=== PATIENT | male | born 1945 | race Caucasian/White ===

== ENCOUNTER 2017-05-30 10:27 | Inpatient (IN) ==
[2017-05-30] MEDS ORDERED: ZALEPLON 5 MG CAPSULE PO PRN (10:29)
[2017-05-30] MEDS ORDERED: DOCUSATE SODIUM 100 MG CAPSULE PO PRN (10:29)
[2017-05-30] MEDS ORDERED: ACETAMINOPHEN 325 MG TABLET PO PRN (10:29)
[2017-05-30] MEDS ORDERED: LACTULOSE 20 GM/30 ML UDCUP PO PRN (10:29)
[2017-05-30] MEDS ORDERED: ALBUTEROL/IPRATROPIUM 3 ML NEB RESP TX PRN (10:34)
--- NOTE | 2017-05-30 10:44 | Pulmonology History & Physical ---
History of Present Illness Chief complaint: bilateral LE lymphangitis and cellulitis, shortness of breath History of present illness: LOUIS Bonilla acting as scribe for Dr. Rome Zhang. Mr. Roca is a 71 year old /White male from [place], [place]. He was seen today in the clinic along with his for complaints of worsening lower extremity edema, erythema, and pain that is unresolved with multiple treatments , several partially healed wounds on both lower extremities, severe hand and lower extremity cramping, increased shortness of breath and wheezing. He has been treated on an outpatient basis with diuresis, antibiotics including Levaquin, PenVK, and Bactrim DS, PO magnesium and potassium, along with other medicines as listed. This has been ongoing per his and his 's report for about 1 month despite treatment and continues to get progressively worse. Due to the severity and length of his symptoms along with failure of multiple outpatient treatments decision was made to admit to inpatient for further evaluation and treatment. He denies palpitations, cardiac angina, syncope or near syncope, and evidence of TIAs. The remainder of the review of systems is negative. ALLERGIES: MORPHINE, HISTORY OF HAY FEVER Home Medicines: Albuterol Sulfate liquid 2mg PO TID, Anoro Ellipta 1 puff daily , ASA EC 81mg daily, Vitamin B3 1000 units daily, Combivent Respimat 1 puff QID PRN, CoQ-10 100mg capsule daily, Flonase nasal spray 1 spray to each nare daily , HCTz 25mg daily, Duoneb Inhalation treatments QID and PRN, Lipitor 40mg qHS, Mag 64 2 tablets daily, Metoprolol tartrate 12.5mg BID, Nexium 40mg BID, Nitrostat SL 0.4mg as directed PRN, Norvasc 5mg daily, Osteo Bi-Flex 250-500mg daily, Plavix 75mg daily, Potassium 99mg OTC tablet BID, Prednisone 10mg BID, Vitamin B6 100mg daily, Reglan 10mg QID, Singulair 10mg daily, Self prescribed Turmeric daily, Tylenol 650mg PRN, Vitamin b12 1000mcg by mouth daily, Vitamin D3 2,000 units daily. Past Medical History: COPD. Bronchospastic airway disease. Hypertension. Hyperlipidemia. Left carotid endarterectomy in 2001. Right carotid endarterectomy 2004. Previous knee surgery. Stent to the proximal and mid right coronary arteries 06/11/2014. Coronary artery disease followed by Dr. Isaac. GERD with history of Degroot's esophagitis. Most recent EGD done 04/29/[address] Ward which showed severe erosive esophagitis with biopsy positive for Degroot' s esophagitis. Dr. Ward recommended repeat EGD in 2 months. 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 Social History: Smoked from age 15 until age 46. He smoked approximately 2 packs per day and quit in 1991. He is to his Herlinda with two grown children. His daughter Alison is a nurse practitioner at the [employer]. He worked for [employer], mostly office work. Family History: Noncontributory. CXR is pending. Labs done at [facility] have been reviewed: WBC 13,600 with 79.2% segs. H&H 14.5/44 with normal indices and a normal RDW. Platelets 200,000. Glucose 108. BUN/ Creatinine 21/1.36. Calcium 9.1. Sodium 141. Potassium 4.4. Magnesium 1.7. EKG is pending. Home Medications Medication Instructions Recorded Confirmed Type Aspirin [Aspirin EC] 81 mg PO DAILY 02/10/17 04/28/17 History Atorvastatin [Lipitor] 40 mg PO BEDTIME 02/10/17 04/28/17 History Clopidogrel [Plavix] 75 mg PO DAILY 02/10/17 04/28/17 History Fluticasone 50 Mcg Nasal Chappell 2 spray BOTH NARES BID PRN 02/10/17 04/28/17 History [Flonase Nasal Chappell] Metoprolol Succinate 0.5 tablet PO BID 02/10/17 04/28/17 History Montelukast Tab [Singulair Tab] 10 mg PO BID 02/10/17 04/29/17 History Nitroglycerin Sl Tab [Nitrostat] 0.4 mg SL Q5M PRN 02/10/17 04/28/17 History amLODIPine [Norvasc] 5 mg PO DAILY 02/10/17 04/28/17 History hydroCHLOROthiazide 25 mg PO DAILY 02/10/17 04/28/17 History [Hydrochlorothiazide] predniSONE [Prednisone] 10 mg PO BID 02/10/17 04/28/17 History Albuterol Liquid [Proventil Liquid] 2 mg PO TID 04/28/17 04/28/17 History Albuterol/Ipratropium Neb [Duoneb] 3 ml RESP TX RT Q6H 04/28/17 04/28/17 History Cholecalciferol (Vitamin D3) 2,000 unit PO DAILY 04/28/17 04/28/17 History [Vitamin D3] Cyanocobalamin Tab [Vitamin B12 500 mcg PO DAILY 04/28/17 04/28/17 History Tab] Ipratropium/Albuterol Inhaler 1 puff INH QID PRN 04/28/17 04/28/17 History [Combivent Respimat Inhaler] Niacin [Vitamin B3] 1,000 mg PO DAILY 04/28/17 04/28/17 History Potassium 99 mg PO DAILY 04/28/17 04/28/17 History Pyridoxine HCl (Vitamin B6) 100 mg PO DAILY 04/28/17 04/28/17 History [Pyridoxine HCl] Turmeric/Turmeric Ext/Pepr Ext 1 each PO DAILY 04/28/17 04/28/17 History [Turmeric Complex 500 mg Cap] Umeclidinium Brm/Vilanterol Tr 1 puff INH DAILY 04/28/17 04/28/17 History [Anoro Ellipta] Esomeprazole Magnesium [Nexium] 40 mg PO BID 04/29/17 04/29/17 History Metoclopramide Tab [Reglan Tab] 10 mg PO Q6H 04/29/17 04/29/17 History Allergies Allergy/AdvReac Type Severity Reaction Status Date / Time morphine Allergy Severe ITCHING Verified 02/12/17 07:16 Medical,Surgical,& Family Hx - Medical History Cardio: History of: Hypertension, Cardiovascular Problems (stent dr isaac) Neurology: No history of: Seizures HEENT: History of: Eye Problem (glasses cataracts), Dental Problems (dentures) Endocrine: History of: Dyslipidemia No history of: Adrenal Disease, Thyroid Disorder Respiratory: History of: Asthma, COPD, Obstructive Sleep Apnea (cpap), Respiratory Problems (productive cough with blood) Renal: No history of: Renal Problems Genitourinary: No history of: Bladder Problem, Kidney Stones Musculoskeletal: History of: Musculoskeletal Problems (oa) Other: No history of: Anesthesia Reactions, Cancer - Surgical History Cardiac Surgeries: Sugical HX of: Cardiac Catheterization, Carotid Endarterectomy (x2) Patient Denies: Cardiac Surgery HEENT Surgeries: Surgical HX of: Carotid Endarterectomy (x2), Eye Surgery ( BILATERAL CATARACT), Tonsilectomy & Adenoidectomy Abdominal Surgeries: Surgical HX of: Colonoscopy, EGD Patient denies: Appendectomy, Cholecystectomy, Hernia Repair Orthopedic Surgeries: Surgical HX of;: Orthopedic Surgery (2 knee), Total Knee Replacement (right) - Family History Family History: Reports;: Family Cancer (dad), Family Diabetes (mom), Family Hypertension (mom brother) - Social History Smoking Status: Former smoker Exam ([facility]) H&P - Constitutional Exam: Vital signs see below Psychiatric. Awake, alert, oriented x 3. Acutely ill appearing. Neruologic: Cranial nerves. Intact. long track motor functions intact. Sensory exam was not done. Gait was not tested. Face. Eyes are normal. Face is symmetrical. Salivary glands are normal. Nares lips and tongue are normal Neck. Symmetrical. No masses. No meningismus. Thyroid was not palpated. Lymphatics. No submandibular cervical supraclavicular or epitrochlear adenopathy Chest. Symmetrical. Mild/moderate large airway/tracheal wheeze on forced expiration. No peripheral wheezing. Chest is otherwise clear. Heart. Heart sounds are distant. No gallop Abdomen. Nontender. No organomegaly. Abdominal obesity is present. and rectal deferred Extremities. No clubbing. Bilateral lower extremity edema most prominent in the pedal area 2/4+ pitting edema. Mild erythma noted to the pedal and anterior mckenna area bilaterally. Musculoskeletal. Age-appropriate loss normal curvature cervical thoracic and lumbar spine. Skin: Face and hands show no cancerous infectious lesions. Scattered purpura noted on both upper extremities. 2 healing sores noted to the LLE and 2 possibly 3 to the RLE. No drainage noted to any of the sore areas. Erythema noted around with some tenderness of palpation. No other areas of skin were examined. Arterial. Carotids are decreased. Upper extremity pulses are palpable lower extremity pulses are nonpalpable. Venous exam of the neck upper extremities normal. Lower extremities noted with edema and erythema as above. The remainder the physical exam is negative. Impression: 1. Bilateral lower extremity lymphangitis and cellulitis refractory to outpatient treatment. 2. Hypomagnesemia. 3. Bilateral hand and left cramping, likely secondary to #2, but r/o other causes. 4. COPD with mild exacerbation based on increased shortness of breath and wheezing. 5. History of GERD with Degroot's Esophagitis. 6. Hypertension. 7. Hyperlipidemia. 8. See past history. Plan: 1. Admit to inpatient for further evaluation and treatment. 2. IV Merrem and Cleocin due to failure of outpatient abx. 3. Venous dopplers and arterial studies as ordered. 4. Labs as ordered, CXR, and EKG. 5. Lovenox 30mg subq daily. 6. See orders.
[2017-05-30] MEDS: ALBUTEROL/IPRATROPIUM 3 ML NEB RESP TX SCH ×3 (11:05→19:57)
[2017-05-30] MEDS ORDERED: NITROGLYCERIN SL 0.4 MG TABLET SL PRN (12:01)
[2017-05-30] MEDS ORDERED: FLUTICASONE 50 MCG NASAL SPRAY 16 GM BOTTLE BOTH NARES PRN (12:01)
--- NOTE | 2017-05-30 13:31 | Ultrasound Report ---
History: Bilateral lower extremity edema and erythema Date: 05/30/2017 Study: Bilateral lower extremity color-flow venous Doppler study Comparison exam: No previous Color Doppler, wave form analysis, and compression analysis of the deep veins of the right lower extremity from the common femoral vein level through the popliteal vein level shows that the veins are readily compressible. There is no abnormal intraluminal material to suggest thrombus. Waveform analysis is unremarkable. Ultrasound images were captured and archived Impression: Normal right lower extremity color flow venous Doppler study. No evidence of acute DVT PROCEDURE INTERPRETED AT [facility] DEPARTMENT OF RADIOLOGY Final Report Signed by: Dr. Yue Jain
--- NOTE | 2017-05-30 14:00 | EKG Report ---
Stationary ECG Study [facility] Test Date: 05/30/2017 2:01:10 PM Pat Name: MEET VOGEL Department: Room: 521 Gender: M Residential Solar Consultant: : 1945 Requested by: Samantha Marx Order Number: [id number] Reading MD: CHERRY PEREZ Intervals [place] Rate: 92 P: 70 DC: 154 QRS: 56 QRSD: 88 T: 66 QT: 340 QTc: 389 Interpretive Statements SINUS RHYTHM WITH FREQUENT VENTRICULAR PREMATURE COMPLEXES LOW QRS VOLTAGE IN PRECORDIAL LEADS MODERATE ST DEPRESSION Electronically Signed On 06-01-17 16:53:45 CDT by CHERRY PEREZ [email or web address]
[2017-05-30] MEDS: hydroCHLOROthiazide 25 MG TABLET PO SCH (14:46)
--- NOTE | 2017-05-30 14:46 | XRay Report ---
XR chest 2V Indication: Shortness of breath. Comparison: None. Technique: PA and lateral chest x-ray was performed. Findings: The heart size appears within normal limits. Pulmonary vasculature demonstrates no specific abnormality. Hilar structures demonstrate fairly symmetric appearance. The lungs appear clear. Mild hyperexpansion is noted on the lateral image. Bones and soft tissues demonstrate no evidence of acute pathology. Impression: 1. Emphysematous changes are suggested without evidence of superimposed acute pathology. 05/30/2017 2:42 PM PROCEDURE INTERPRETED AT [facility] DEPARTMENT OF RADIOLOGY Final Report Signed by: Dr. Kd Pina
[2017-05-30] MEDS: METOCLOPRAMIDE 10 MG TABLET PO SCH ×3 (14:47→23:48)
[2017-05-30] MEDS: methylPREDNISolone SOD SUC 40 MG/1 ML VIAL IV SCH ×2 (14:50→23:48)
[2017-05-30] MEDS: ENOXAPARIN 30 MG/0.3 ML SYRINGE SUBCUT SCH (14:51)
[2017-05-30] MEDS: MEROPENEM 500 MG in SODIUM CHLORIDE 0.9% 100 ML IV SCH ×2 (14:54→21:02)
[2017-05-30 14:55] LABS: Apearance,Urine CLEAR (Clear); Bilirubin,Urine Negative (Negative); Blood, Urine Negative (Negative); Glucose,Urine (UA) Negative (Negative); Ketones,Urine Negative (Negative); Nitrite,Urine Negative (Negative); Protein,Urine Negative; RBC,Urine <1 /HPF (0-4); Urine Color Yellow (Yellow); Urine Specific Gravity 1.013 (1.001-1.035); Urine Urobilinogen < 2.0 EU/DL (0.2-1.0); WBC,Urine <1 /HPF (0-6)
[2017-05-30] MEDS: CLINDAMYCIN INJ 300 MG in PREMIX 1 EACH IV SCH ×2 (15:59→22:11)
[2017-05-30] MEDS: ALBUTEROL 0.4 MG/ML 30 ML/BOTTLE PO SCH ×2 (16:21→21:05)
[2017-05-30] MEDS: PANTOPRAZOLE 40 MG TABLET PO SCH (21:01)
[2017-05-30] MEDS: ATORVASTATIN 40 MG TABLET PO SCH (21:01)
[2017-05-30] MEDS: METOPROLOL TARTRATE 25 MG TABLET PO SCH (21:01)
[2017-05-30] MEDS: MONTELUKAST 10 MG TABLET PO SCH (21:01)
[2017-05-30] MEDS: POTASSIUM CHLORIDE 10 MEQ TABLET PO SCH (21:02)
[2017-05-30] MEDS: MAGNESIUM CHLORIDE 64 MG TABLET PO SCH (21:02)
[2017-05-31 06:26] LABS: Basophils % 0.2 % (0.0-0.8); Hematocrit 43.8 VOL% (42.0-52.0); Hemoglobin 14.8 GM/DL (14.0-18.0); Immature Granulocytes % 1.8 %; Immature Granulocytes Absolute 0.23 #; Lymphocytes # 1.1 10*3/uL (1.4-4.0); Lymphocytes % 8.1 % (21.2-54.2); Mean Corpuscular HGB Conc 33.8 GM/DL (32-36); Mean Corpuscular Hemoglobin 31 PG (27-34); Mean Corpuscular Volume 92.2 FL (87-102); Mean Platelet Volume 10.4 FL (9.6-12.0); Monocytes # 0.3 10*3/uL (0.11-0.8); Monocytes % 2.5 % (1.7-12.7); Neutrophils # 11.3 10*3/uL (1.4-7.4); Neutrophils % 87.4 % (38.7-73.9); Platelet Count 190 T/CUMM (130-400); Red Blood Count 4.75 MC/CUMM (3.8-5.5); Red Cell Distribution Width 13.9 % (9.3-17.3); White Blood Count 12.9 T/CUMM (4-12)
[2017-05-31] MEDS: MEROPENEM 500 MG in SODIUM CHLORIDE 0.9% 100 ML IV SCH ×3 (06:40→20:38)
[2017-05-31] MEDS: METOCLOPRAMIDE 10 MG TABLET PO SCH ×3 (06:40→17:53)
[2017-05-31 07:05] LABS: Albumin 3.7 G/DL (3.4-5.0); Bilirubin,Total 1.1 MG/DL (0.2-1.0); Calcium 9.4 MG/DL (8.5-10.1); Magnesium 2.3 MG/DL (1.8-2.4); Osmolality,Calculated 279.7 MOS/KG (273-304); Potassium 4.6 MMOL/L (3.5-5.1); Total Protein 6.8 G/DL (6.4-8.3)
[2017-05-31] MEDS: CLINDAMYCIN INJ 300 MG in PREMIX 1 EACH IV SCH ×3 (07:11→21:17)
[2017-05-31] MEDS: ALBUTEROL/IPRATROPIUM 3 ML NEB RESP TX SCH ×4 (08:03→20:15)
[2017-05-31] MEDS: PYRIDOXINE 100 MG TABLET PO SCH (08:27)
[2017-05-31] MEDS: NIACIN 500 MG TABLET PO SCH (08:27)
[2017-05-31] MEDS: MAGNESIUM CHLORIDE 64 MG TABLET PO SCH ×2 (08:27→20:37)
[2017-05-31] MEDS: hydroCHLOROthiazide 25 MG TABLET PO SCH (08:27)
[2017-05-31] MEDS: CHOLECALCIFEROL 1,000 UNIT TABLET PO SCH (08:27)
[2017-05-31] MEDS: PANTOPRAZOLE 40 MG TABLET PO SCH ×2 (08:28→20:38)
[2017-05-31] MEDS: POTASSIUM CHLORIDE 10 MEQ TABLET PO SCH ×2 (08:28→20:38)
[2017-05-31] MEDS: MONTELUKAST 10 MG TABLET PO SCH ×2 (08:28→20:37)
[2017-05-31] MEDS: ASPIRIN EC 81 MG TABLET PO SCH (08:28)
[2017-05-31] MEDS: CLOPIDOGREL 75 MG TABLET PO SCH (08:28)
[2017-05-31] MEDS: METOPROLOL TARTRATE 25 MG TABLET PO SCH ×2 (08:28→20:37)
[2017-05-31] MEDS: amLODIPine 5 MG TABLET PO SCH (08:28)
[2017-05-31] MEDS: ENOXAPARIN 30 MG/0.3 ML SYRINGE SUBCUT SCH (08:29)
[2017-05-31] MEDS: ALBUTEROL 0.4 MG/ML 30 ML/BOTTLE PO SCH ×4 (08:30→20:38)
[2017-05-31] MEDS ORDERED: NON-FORMULARY MEDICATION (Umeclidinium Brm/Vilanterol Tr [Anoro Ellipta] 1 PUFF) INH SCH (09:00)
--- NOTE | 2017-05-31 10:29 | Event Note ---
I saw the patient's in the hospital and she stopped me pulled me into the room. She wanted to discuss cessation of clopidogrel. Mr. Roca is now several years status post PCI of the RCA has advanced COPD and some right heart failure with last echo his EF was preserved. He recently had a stress test within the last year at the office. It will be fine from a cardiac standpoint for the patient to discontinue clopidogrel he continues to have significant amount of bleeding with minimal minimal trauma she showed me pictures of his legs and arms after he got in some briars while mowing the grass at home a week or so ago. It certainly will be fine with me for him to have his clopidogrel discontinued. He has carotid vascular disease but I do not think there is an indication from that standpoint to continue that at this time. Please discontinue clopidogrel unless there are indications that I am unaware of as a reason to continue this.
--- NOTE | 2017-05-31 11:05 | Pulmonology Progress Note ---
Pulmonary - PN: Subj Interval history: This is a 71-year-old white male whom I admitted from my office on 05/30/2017. My impressions were. 1. Bilateral lower extremity lymphangitis and cellulitis refractory to outpatient treatment. 2. Hypomagnesemia. 3. Bilateral hand and left cramping, likely secondary to #2, but r/o other causes. 4. COPD with mild exacerbation based on increased shortness of breath and wheezing. 5. History of GERD with Degroot's Esophagitis. 6. Hypertension. 7. Hyperlipidemia. 8. See past history. 05/31/2017. Patient was seen along with his . He has bilateral lower extremity lymphangitis and cellulitis. This is better and he has less edema but he sitting up in a chair with his feet down and I have repeatedly told him not to do this. I reinforced that today. I suspect he is just as compliant when he is at home. Doppler venogram showed no evidence of deep venous thrombophlebitis. I did not see a definite infiltrate on his chest x-ray. He was admitted with an acute exacerbation of COPD. I was suspicious that he might have pneumonia. White blood cell count was 12,900 with 87.4 segs. H&H was 14.8/43.8 with normal indices and platelets 490,000. Electrolytes are normal. Creatinine was 1.1 with a BUN of 19. Urine showed no evidence of infection. Natruretic peptide was 46. Protein albumin and globulin are normal thyroid function tests were normal liver was normal and glucose is under good control Physical exam. Vital signs. See below. Psychiatric. Oriented 3 General. No distress Face. Symmetrical. No edema of the lips or tongue Neck. Symmetrical no meningismus Lymphatics. No submandibular cervical supraclavicular or epitrochlear adenopathy Chest tracheal and laryngeal wheeze with prolonged incomplete expiration Heart. No gallop Abdomen. Nontender. Positive bowel sounds Lower extremities +1-1/2 over 4 pedal and pretibial edema that extends 60% of the distance to the tibial plateaus bilaterally. There is overlying erythema which tends to be anterior and there is several areas of super imposed bacterial infection with weeping. Neurologic. Cranial nerves are intact with some decreased hearing acuity. Long track motor functions intact The remainder the physical exam is negative. Plan. 1. Continue present regimen 2. Elevate feet as much as humanly possible Plan: 1. Admit to inpatient for further evaluation and treatment. 2. IV Merrem and Cleocin due to failure of outpatient abx. 3. Venous dopplers and arterial studies as ordered. 4. Labs as ordered, CXR, and EKG. 5. Lovenox 30mg subq daily. 6. See orders. Exam (Progress Note) - Constitutional Vitals: Period Temp Pulse Resp BP Sys/Granados Pulse Ox Last 24 Hr 97.1 F-99.7 F 70-94 17-22 128-155/71-98 90-98 Results - Labs CBC & BMP: 05/31/17 04:27 05/31/17 04:27
[2017-05-31] MEDS: methylPREDNISolone SOD SUC 40 MG/1 ML VIAL IV SCH (11:30)
[2017-05-31] MEDS: ATORVASTATIN 40 MG TABLET PO SCH (20:37)
[2017-06-01] MEDS: methylPREDNISolone SOD SUC 40 MG/1 ML VIAL IV SCH ×2 (00:21→11:31)
[2017-06-01] MEDS: METOCLOPRAMIDE 10 MG TABLET PO SCH ×4 (00:21→17:44)
[2017-06-01 05:49] LABS: Basophils % 0.2 % (0.0-0.8); Hematocrit 42.4 VOL% (42.0-52.0); Hemoglobin 14.3 GM/DL (14.0-18.0); Immature Granulocytes % 2.5 %; Immature Granulocytes Absolute 0.36 #; Mean Corpuscular HGB Conc 33.7 GM/DL (32-36); Mean Corpuscular Hemoglobin 31 PG (27-34); Mean Corpuscular Volume 93.2 FL (87-102); Mean Platelet Volume 10.5 FL (9.6-12.0); Monocytes # 0.6 10*3/uL (0.11-0.8); Monocytes % 3.9 % (1.7-12.7); Neutrophils # 12.5 10*3/uL (1.4-7.4); Neutrophils % 86.4 % (38.7-73.9); Platelet Count 192 T/CUMM (130-400); Red Blood Count 4.55 MC/CUMM (3.8-5.5); White Blood Count 14.5 T/CUMM (4-12)
[2017-06-01] MEDS: MEROPENEM 500 MG in SODIUM CHLORIDE 0.9% 100 ML IV SCH ×3 (06:01→21:27)
[2017-06-01 06:28] LABS: Calcium 9.3 MG/DL (8.5-10.1); Magnesium 2.3 MG/DL (1.8-2.4); Osmolality,Calculated 280.7 MOS/KG (273-304); Potassium 4.8 MMOL/L (3.5-5.1)
[2017-06-01] MEDS: CLINDAMYCIN INJ 300 MG in PREMIX 1 EACH IV SCH ×3 (06:37→22:05)
[2017-06-01] MEDS: ALBUTEROL/IPRATROPIUM 3 ML NEB RESP TX SCH ×4 (07:28→19:13)
[2017-06-01] MEDS: MAGNESIUM CHLORIDE 64 MG TABLET PO SCH ×2 (08:13→21:26)
[2017-06-01] MEDS: PYRIDOXINE 100 MG TABLET PO SCH (08:14)
[2017-06-01] MEDS: CHOLECALCIFEROL 1,000 UNIT TABLET PO SCH (08:14)
[2017-06-01] MEDS: amLODIPine 5 MG TABLET PO SCH (08:14)
[2017-06-01] MEDS: NIACIN 500 MG TABLET PO SCH (08:14)
[2017-06-01] MEDS: METOPROLOL TARTRATE 25 MG TABLET PO SCH ×2 (08:14→21:26)
[2017-06-01] MEDS: PANTOPRAZOLE 40 MG TABLET PO SCH ×2 (08:14→21:26)
[2017-06-01] MEDS: hydroCHLOROthiazide 25 MG TABLET PO SCH (08:14)
[2017-06-01] MEDS: ENOXAPARIN 30 MG/0.3 ML SYRINGE SUBCUT SCH (08:14)
[2017-06-01] MEDS: ASPIRIN EC 81 MG TABLET PO SCH (08:14)
[2017-06-01] MEDS: MONTELUKAST 10 MG TABLET PO SCH ×2 (08:14→21:26)
[2017-06-01] MEDS: POTASSIUM CHLORIDE 10 MEQ TABLET PO SCH ×2 (08:14→21:26)
[2017-06-01] MEDS: CLOPIDOGREL 75 MG TABLET PO SCH (08:17)
[2017-06-01] MEDS: ALBUTEROL 0.4 MG/ML 30 ML/BOTTLE PO SCH ×4 (08:17→21:27)
--- NOTE | 2017-06-01 09:57 | Pulmonology Progress Note ---
Pulmonary - PN: Subj Interval history: This is a 71-year-old white male whom I admitted from my office on 05/30/2017. My impressions were. 1. Bilateral lower extremity lymphangitis and cellulitis refractory to outpatient treatment. 2. Hypomagnesemia. 3. Bilateral hand and left cramping, likely secondary to #2, but r/o other causes. 4. COPD with mild exacerbation based on increased shortness of breath and wheezing. 5. History of GERD with Degroot's Esophagitis. 6. Hypertension. 7. Hyperlipidemia. 8. See past history. 05/31/2017. Patient was seen along with his . He has bilateral lower extremity lymphangitis and cellulitis. This is better and he has less edema but he sitting up in a chair with his feet down and I have repeatedly told him not to do this. I reinforced that today. I suspect he is just as compliant when he is at home. Doppler venogram showed no evidence of deep venous thrombophlebitis. I did not see a definite infiltrate on his chest x-ray. He was admitted with an acute exacerbation of COPD. I was suspicious that he might have pneumonia. White blood cell count was 12,900 with 87.4 segs. H&H was 14.8/43.8 with normal indices and platelets 490,000. Electrolytes are normal. Creatinine was 1.1 with a BUN of 19. Urine showed no evidence of infection. Natruretic peptide was 46. Protein albumin and globulin are normal thyroid function tests were normal liver was normal and glucose is under good control 06/01/2017. Patient's had a stable night and there are no new problems. His legs look a little better. White blood cell count is 14,500. H&H and platelets are stable. Electrolytes are normal. Creatinine is 1.2 with a BUN of 22. There are no positive cultures. Physical exam. Vital signs. See below. Psychiatric. Oriented 3 General. No distress Face. Symmetrical. No edema of the lips or tongue Neck. Symmetrical no meningismus Lymphatics. No submandibular cervical supraclavicular or epitrochlear adenopathy Chest tracheal and laryngeal wheeze with prolonged incomplete expiration Heart. No gallop Abdomen. Nontender. Positive bowel sounds Lower extremities +1-1/2 over 4 pedal and pretibial edema that extends 60% of the distance to the tibial plateaus bilaterally. There is overlying erythema which tends to be anterior and there is several areas of super imposed bacterial infection with weeping. Neurologic. Cranial nerves are intact with some decreased hearing acuity. Long track motor functions intact The remainder the physical exam is negative. Plan. 05/30/2017 1. Continue present regimen 2. Elevate feet as much as humanly possible Plan: 05/31/2017 1. Admit to inpatient for further evaluation and treatment. 2. IV Merrem and Cleocin due to failure of outpatient abx. 3. Venous dopplers and arterial studies as ordered. 4. Labs as ordered, CXR, and EKG. 5. Lovenox 30mg subq daily. 6. See orders. 06/01/2017. 1. See today's note above 2. No changes made. Exam (Progress Note) - Constitutional Vitals: Period Temp Pulse Resp BP Sys/Granados Pulse Ox Last 24 Hr 97.1 F-97.9 F 69-111 17-21 134-154/73-102 91-99 Results - Labs CBC & BMP: 06/01/17 04:25 06/01/17 04:25
[2017-06-01] MEDS: ATORVASTATIN 40 MG TABLET PO SCH (21:26)
[2017-06-01] MEDS: clonazePAM 0.5 MG TABLET PO SCH ×2 (21:26→21:27)
[2017-06-02] MEDS: METOCLOPRAMIDE 10 MG TABLET PO SCH ×5 (00:09→23:48)
[2017-06-02] MEDS: methylPREDNISolone SOD SUC 40 MG/1 ML VIAL IV SCH ×3 (00:10→22:09)
[2017-06-02 06:08] LABS: Basophils % 0.2 % (0.0-0.8); Hemoglobin 14.5 GM/DL (14.0-18.0); Immature Granulocytes % 2.6 %; Immature Granulocytes Absolute 0.38 #; Lymphocytes # 1.4 10*3/uL (1.4-4.0); Lymphocytes % 9.5 % (21.2-54.2); Mean Corpuscular HGB Conc 33.7 GM/DL (32-36); Mean Corpuscular Hemoglobin 31 PG (27-34); Mean Corpuscular Volume 93.1 FL (87-102); Mean Platelet Volume 10.3 FL (9.6-12.0); Monocytes # 0.7 10*3/uL (0.11-0.8); NRBC # 0.02 10*3/uL; Neutrophils # 12.2 10*3/uL (1.4-7.4); Neutrophils % 82.7 % (38.7-73.9); Platelet Count 198 T/CUMM (130-400); Red Blood Count 4.62 MC/CUMM (3.8-5.5); Red Cell Distribution Width 14.2 % (9.3-17.3); White Blood Count 14.7 T/CUMM (4-12)
[2017-06-02] MEDS: MEROPENEM 500 MG in SODIUM CHLORIDE 0.9% 100 ML IV SCH ×3 (06:15→20:26)
[2017-06-02 06:42] LABS: Calcium 9.2 MG/DL (8.5-10.1); Magnesium 2.3 MG/DL (1.8-2.4); Osmolality,Calculated 278.8 MOS/KG (273-304); Potassium 4.7 MMOL/L (3.5-5.1)
[2017-06-02] MEDS: CLINDAMYCIN INJ 300 MG in PREMIX 1 EACH IV SCH ×3 (06:47→21:39)
[2017-06-02] MEDS: ALBUTEROL/IPRATROPIUM 3 ML NEB RESP TX SCH ×4 (07:18→19:43)
[2017-06-02] MEDS: hydroCHLOROthiazide 25 MG TABLET PO SCH (08:52)
[2017-06-02] MEDS: ASPIRIN EC 81 MG TABLET PO SCH (08:52)
[2017-06-02] MEDS: amLODIPine 5 MG TABLET PO SCH (08:52)
[2017-06-02] MEDS: POTASSIUM CHLORIDE 10 MEQ TABLET PO SCH ×2 (08:52→20:22)
[2017-06-02] MEDS: MAGNESIUM CHLORIDE 64 MG TABLET PO SCH ×2 (08:52→20:23)
[2017-06-02] MEDS: NIACIN 500 MG TABLET PO SCH (08:52)
[2017-06-02] MEDS: CHOLECALCIFEROL 1,000 UNIT TABLET PO SCH (08:52)
[2017-06-02] MEDS: PYRIDOXINE 100 MG TABLET PO SCH (08:52)
[2017-06-02] MEDS: MONTELUKAST 10 MG TABLET PO SCH ×2 (08:53→20:22)
[2017-06-02] MEDS: PANTOPRAZOLE 40 MG TABLET PO SCH ×2 (08:53→20:23)
[2017-06-02] MEDS: METOPROLOL TARTRATE 25 MG TABLET PO SCH ×2 (08:53→20:22)
[2017-06-02] MEDS: ALBUTEROL 0.4 MG/ML 30 ML/BOTTLE PO SCH ×3 (08:54→20:24)
--- NOTE | 2017-06-02 09:44 | Pulmonology Progress Note ---
Pulmonary - PN: Subj Interval history: Wayne Bonilla, [facility]-, acting as scribe for Dr. Rome Zhang This is a 71-year-old white male who was admitted from [facility] [place] [facility] on 05/30/2017. At the time of admission, our impressions were: 1. Bilateral lower extremity lymphangitis and cellulitis refractory to outpatient treatment. 2. Hypomagnesemia. 3. Bilateral hand and left cramping, likely secondary to #2, but r/o other causes. 4. COPD with mild exacerbation based on increased shortness of breath and wheezing. 5. History of GERD with Degroot's Esophagitis. 6. Hypertension. 7. Hyperlipidemia. 8. See past history. 05/31/2017. Patient was seen along with his . He has bilateral lower extremity lymphangitis and cellulitis. This is better and he has less edema but he sitting up in a chair with his feet down and I have repeatedly told him not to do this. I reinforced that today. I suspect he is just as compliant when he is at home. Doppler venogram showed no evidence of deep venous thrombophlebitis. I did not see a definite infiltrate on his chest x-ray. He was admitted with an acute exacerbation of COPD. I was suspicious that he might have pneumonia. White blood cell count was 12,900 with 87.4 segs. H&H was 14.8/43.8 with normal indices and platelets 490,000. Electrolytes are normal. Creatinine was 1.1 with a BUN of 19. Urine showed no evidence of infection. Natruretic peptide was 46. Protein albumin and globulin are normal thyroid function tests were normal liver was normal and glucose is under good control 06/01/2017. Patient's had a stable night and there are no new problems. His legs look a little better. White blood cell count is 14,500. H&H and platelets are stable. Electrolytes are normal. Creatinine is 1.2 with a BUN of 22. There are no positive cultures. 06/02/17. The patient's was not present today. The patient is lying in bed and breathing comfortably. His lower extremity edema and erythema has markedly improved. He has COPD. He has had some wheezing and this is improving. We will repeat a CXR in the morning. Medications have been reviewed. We made no changes today Labs have been reviewed. White count is 14,700 with 82.7% segs; H*H 14.5/43.0; PLT count 198,000; creatinine 1.20, BUN 22, electrolytes are normal Microbiology was reviewed. There are no positive cultures. Exam (Progress Note) - Constitutional Vitals: Period Temp Pulse Resp BP Sys/Granados Pulse Ox Last 24 Hr 97.1 F-97.8 F 61-103 16-20 102-155/60-84 90-100 Exam: Chest with mild LAW wheeze Heart no gallop Abd is obese, but nontender and nondistended; BS positive x 4 Ext...see above Psych oriented x 3 Neuro long tract motor function is intact Plan: Continue present treatment. Repeat CXR in the morning. See orders. If he continues to improve at this rate, he will likely be ready for discharge on Friday. Again, he is an outpatient treatment failure. Results - Labs CBC & BMP: 06/02/17 04:32 06/02/17 04:32
[2017-06-02] MEDS: ENOXAPARIN 40 MG/0.4 ML SYRINGE SUBCUT SCH (11:37)
[2017-06-02] MEDS: clonazePAM 0.5 MG TABLET PO SCH (20:22)
[2017-06-02] MEDS: ATORVASTATIN 40 MG TABLET PO SCH (20:23)
[2017-06-03] MEDS: MEROPENEM 500 MG in SODIUM CHLORIDE 0.9% 100 ML IV SCH ×3 (05:09→20:29)
[2017-06-03] MEDS: METOCLOPRAMIDE 10 MG TABLET PO SCH ×4 (06:09→23:49)
[2017-06-03] MEDS: CLINDAMYCIN INJ 300 MG in PREMIX 1 EACH IV SCH ×3 (06:10→21:33)
[2017-06-03] MEDS: ALBUTEROL/IPRATROPIUM 3 ML NEB RESP TX SCH ×4 (07:06→20:20)
[2017-06-03 07:27] LABS: Calcium 9.1 MG/DL (8.5-10.1); Osmolality,Calculated 279.8 MOS/KG (273-304); Potassium 4.7 MMOL/L (3.5-5.1)
--- NOTE | 2017-06-03 08:40 | XRay Report ---
XR chest 2V Indication: COPD Comparison: Chest x-ray dated May 22, 2017 Technique: Frontal and lateral views of the chest. Findings: The cardiomediastinal silhouette is stable in configuration. Heart remains borderline in size. Chronic/emphysematous change of the lungs present without new focal consolidation, pleural effusion, or pneumothorax. Visualized osseous and surrounding soft tissue structures appear grossly unchanged. IMPRESSION: No significant interval change. PROCEDURE INTERPRETED AT [facility] DEPARTMENT OF RADIOLOGY Final Report Signed by: Dr Rico Guerrero
[2017-06-03] MEDS: amLODIPine 5 MG TABLET PO SCH (08:51)
[2017-06-03] MEDS: MONTELUKAST 10 MG TABLET PO SCH ×2 (08:52→20:29)
[2017-06-03] MEDS: ASPIRIN EC 81 MG TABLET PO SCH (08:52)
[2017-06-03] MEDS: METOPROLOL TARTRATE 25 MG TABLET PO SCH ×2 (08:53→20:28)
[2017-06-03] MEDS: ENOXAPARIN 40 MG/0.4 ML SYRINGE SUBCUT SCH (08:53)
[2017-06-03] MEDS: ALBUTEROL 0.4 MG/ML 30 ML/BOTTLE PO SCH ×3 (08:53→20:29)
[2017-06-03] MEDS: POTASSIUM CHLORIDE 10 MEQ TABLET PO SCH ×2 (08:53→20:28)
[2017-06-03] MEDS: hydroCHLOROthiazide 25 MG TABLET PO SCH (08:53)
[2017-06-03] MEDS: PYRIDOXINE 100 MG TABLET PO SCH (08:53)
[2017-06-03] MEDS: PANTOPRAZOLE 40 MG TABLET PO SCH ×2 (08:53→20:29)
[2017-06-03] MEDS: CHOLECALCIFEROL 1,000 UNIT TABLET PO SCH (08:54)
[2017-06-03] MEDS: MAGNESIUM CHLORIDE 64 MG TABLET PO SCH ×2 (08:54→20:29)
[2017-06-03] MEDS: NIACIN 500 MG TABLET PO SCH (08:54)
--- NOTE | 2017-06-03 09:42 | Pulmonology Progress Note ---
Pulmonary - PN: Subj Interval history: This is a 71-year-old white male whom I admitted from my office on 05/30/2017. My impressions were. 1. Bilateral lower extremity lymphangitis and cellulitis refractory to outpatient treatment. 2. Hypomagnesemia. 3. Bilateral hand and left cramping, likely secondary to #2, but r/o other causes. 4. COPD with mild exacerbation based on increased shortness of breath and wheezing. 5. History of GERD with Degroot's Esophagitis. 6. Hypertension. 7. Hyperlipidemia. 8. See past history. 05/31/2017. Patient was seen along with his . He has bilateral lower extremity lymphangitis and cellulitis. This is better and he has less edema but he sitting up in a chair with his feet down and I have repeatedly told him not to do this. I reinforced that today. I suspect he is just as compliant when he is at home. Doppler venogram showed no evidence of deep venous thrombophlebitis. I did not see a definite infiltrate on his chest x-ray. He was admitted with an acute exacerbation of COPD. I was suspicious that he might have pneumonia. White blood cell count was 12,900 with 87.4 segs. H&H was 14.8/43.8 with normal indices and platelets 490,000. Electrolytes are normal. Creatinine was 1.1 with a BUN of 19. Urine showed no evidence of infection. Natruretic peptide was 46. Protein albumin and globulin are normal thyroid function tests were normal liver was normal and glucose is under good control 06/01/2017. Patient's had a stable night and there are no new problems. His legs look a little better. White blood cell count is 14,500. H&H and platelets are stable. Electrolytes are normal. Creatinine is 1.2 with a BUN of 22. There are no positive cultures. 06/03/2017. Patient was seen along with his brother, Seymour. Chest x-ray shows resolution of infiltrates. Patient's chest is much clearer today and he has improved his ability to move air again. He is to mobilize his secretions. I think he will be ready for discharge tomorrow and this is been discussed with him. Electrolytes are normal. Creatinine is 1.0. BUNs 20. Labs been reviewed and medicines have been reviewed Physical exam. Vital signs. See below. Psychiatric. Oriented 3 General. No distress Face. Symmetrical. No edema of the lips or tongue Neck. Symmetrical no meningismus Lymphatics. No submandibular cervical supraclavicular or epitrochlear adenopathy Chest. Previously noted tracheal and laryngeal wheeze with prolonged incomplete expiration has for all practical purposes resolved. Expiration is still prolonged and not quite complete but the wheezing has Heart. No gallop Abdomen. Nontender. Positive bowel sounds Lower extremities +1-1/2 over 4 pedal and pretibial edema that extends 60% of the distance to the tibial plateaus bilaterally. There is overlying erythema which tends to be anterior and there is several areas of super imposed bacterial infection with weeping. Neurologic. Cranial nerves are intact with some decreased hearing acuity. Long track motor functions intact The remainder the physical exam is negative. Plan. 05/30/2017 1. Continue present regimen 2. Elevate feet as much as humanly possible Plan: 05/31/2017 1. Admit to inpatient for further evaluation and treatment. 2. IV Merrem and Cleocin due to failure of outpatient abx. 3. Venous dopplers and arterial studies as ordered. 4. Labs as ordered, CXR, and EKG. 5. Lovenox 30mg subq daily. 6. See orders. 06/01/2017. 1. See today's note above 2. No changes made. 06/03/2017. 1. Improved. 2. Plan discharge for the more peer 3. See my note for today above Exam (Progress Note) - Constitutional Vitals: Period Temp Pulse Resp BP Sys/Granados Pulse Ox Last 24 Hr 97.3 F-97.9 F 34-94 17-22 105-165/56-91 91-98 Results - Labs CBC & BMP: 06/02/17 04:32 06/03/17 06:23
[2017-06-03] MEDS: methylPREDNISolone SOD SUC 40 MG/1 ML VIAL IV SCH ×2 (12:00→22:05)
[2017-06-03] MEDS: ATORVASTATIN 40 MG TABLET PO SCH (20:28)
[2017-06-03] MEDS: clonazePAM 0.5 MG TABLET PO SCH (20:28)
[2017-06-04] MEDS: MEROPENEM 500 MG in SODIUM CHLORIDE 0.9% 100 ML IV SCH (04:33)
[2017-06-04] MEDS: CLINDAMYCIN INJ 300 MG in PREMIX 1 EACH IV SCH (05:34)
[2017-06-04] MEDS: METOCLOPRAMIDE 10 MG TABLET PO SCH (05:34)
[2017-06-04] MEDS: ALBUTEROL/IPRATROPIUM 3 ML NEB RESP TX SCH (07:19)
[2017-06-04] MEDS: PYRIDOXINE 100 MG TABLET PO SCH (08:51)
[2017-06-04] MEDS: NIACIN 500 MG TABLET PO SCH (08:51)
[2017-06-04] MEDS: ENOXAPARIN 40 MG/0.4 ML SYRINGE SUBCUT SCH (08:51)
[2017-06-04] MEDS: hydroCHLOROthiazide 25 MG TABLET PO SCH (08:51)
[2017-06-04] MEDS: CHOLECALCIFEROL 1,000 UNIT TABLET PO SCH (08:51)
[2017-06-04] MEDS: MONTELUKAST 10 MG TABLET PO SCH (08:51)
[2017-06-04] MEDS: MAGNESIUM CHLORIDE 64 MG TABLET PO SCH (08:51)
[2017-06-04] MEDS: amLODIPine 5 MG TABLET PO SCH (08:52)
[2017-06-04] MEDS: POTASSIUM CHLORIDE 10 MEQ TABLET PO SCH (08:52)
[2017-06-04] MEDS: METOPROLOL TARTRATE 25 MG TABLET PO SCH (08:52)
[2017-06-04] MEDS: PANTOPRAZOLE 40 MG TABLET PO SCH (08:52)
[2017-06-04] MEDS: ASPIRIN EC 81 MG TABLET PO SCH (08:52)
--- NOTE | 2017-06-04 10:00 | Pulmonology Progress Note ---
Pulmonary - PN: Subj Interval history: aWyne Bonilla, [facility]-, acting as scribe for Dr. Rome Zhang This is a 71-year-old white male who [place] [facility] [place] At the time of admission, our impressions were: 1. Bilateral lower extremity lymphangitis and cellulitis refractory to outpatient treatment. 2. Hypomagnesemia. 3. Bilateral hand and left cramping, likely secondary to #2, but r/o other causes. 4. COPD with mild exacerbation based on increased shortness of breath and wheezing. 5. History of GERD with Degroot's Esophagitis. 6. Hypertension. 7. Hyperlipidemia. 8. See past history. 05/31/2017. Patient was seen along with his . He has bilateral lower extremity lymphangitis and cellulitis. This is better and he has less edema but he sitting up in a chair with his feet down and I have repeatedly told him not to do this. I reinforced that today. I suspect he is just as compliant when he is at home. Doppler venogram showed no evidence of deep venous thrombophlebitis. I did not see a definite infiltrate on his chest x-ray. He was admitted with an acute exacerbation of COPD. I was suspicious that he might have pneumonia. White blood cell count was 12,900 with 87.4 segs. H&H was 14.8/43.8 with normal indices and platelets 490,000. Electrolytes are normal. Creatinine was 1.1 with a BUN of 19. Urine showed no evidence of infection. Natruretic peptide was 46. Protein albumin and globulin are normal thyroid function tests were normal liver was normal and glucose is under good control 06/01/2017. Patient's had a stable night and there are no new problems. His legs look a little better. White blood cell count is 14,500. H&H and platelets are stable. Electrolytes are normal. Creatinine is 1.2 with a BUN of 22. There are no positive cultures. 06/02/17. The patient's was not present today. The patient is lying in bed and breathing comfortably. His lower extremity edema and erythema has markedly improved. He has COPD. He has had some wheezing and this is improving. We will repeat a CXR in the morning. 06/03/2017. Patient was seen along with his brother, Seymour. Chest x-ray shows resolution of infiltrates. Patient's chest is much clearer today and he has improved his ability to move air again. He is to mobilize his secretions. I think he will be ready for discharge tomorrow and this is been discussed with him. Electrolytes are normal. Creatinine is 1.0. BUNs 20. Labs been reviewed and medicines have been reviewed. 06/04/2017. The patient was seen today along with his and Milka Acevedo RN. Patient's bilateral lower extremity cellulitis and lymphangitis has resolved. His breathing is markedly improved. Today we had a long discussion with him about elevating his feet and taking off his medications as prescribed. We have asked that he discontinue any added salt in his diet. Medications have been reviewed. Labs have been reviewed. Repeat free T4 was again low at 0.58. Microbiology was reviewed. There are no positive cultures. Exam (Progress Note) - Constitutional Vitals: Period Temp Pulse Resp BP Sys/Granados Pulse Ox Last 24 Hr 96.8 F-98.5 F 63-96 16-24 129-160/65-98 91-98 Exam: Chest is wheeze free Heart no gallop Abd is obese, but nontender and nondistended; BS positive x 4 Ext...see above Psych oriented x 3 Neuro long tract motor function is intact Plan: The patient has now met maximum hospital benefit and will be discharged home. Please see the discharge note for more information. Results - Labs CBC & BMP: 06/02/17 04:32 06/03/17 06:23
--- NOTE | 2017-06-04 10:10 | Discharge Summary ---
Hospital Course - Hospital Course Hospital Course: Wayne Bonilla, [facility], acting as scribe for Dr. Rome Zhang Mr. Roca is a 71-year-old white male who was [facility]/30/[facility] with cellulitis and lymphangitis of the bilateral lower extremities which had been refractory to outpatient treatment. Prior to admission the patient had been treated with Levaquin, Pen-Vee K, and Bactrim DS. He is on chronic prednisone therapy for his COPD. Despite these appropriate interventions, the patient's cellulitis and lymphangitis progressed. He was beginning to have tissue breakdown ulceration, so was felt in his best interest to hospitalize him for further evaluation care. The patient was started on Cleocin, Merrem, and Solu-Medrol. His legs were elevated and with these interventions to cellulitis lymphangitis has resolved. Prior to discharge we had a long discussion with the patient and his about significantly decreasing his salt intake, elevating his legs, pumping his feet back and forth to promote flow, and use of compression stockings. He will continue on Cleocin and Ceftin for another 5 days after discharge. We will place him back on his home dose of prednisone 10 mg twice daily. Note, Doppler venograms done 05/30/2017 showed no evidence of DVT in either lower extremity. At admission the patient also had an acute exacerbation of COPD with increased shortness of breath and wheezing. He ultimately required the Singulair to be increased to twice a day. Of note, he was also on a larger steroid dose than prior to admission. Sputum for Gram stain, culture and sensitivity was ordered , however, the patient never produced a sputum for testing. Nonetheless, at discharge the patient's respiratory status has markedly improved and he is back to his baseline. Date of admission the patient's found Dr. Holman in the hospital to inquire about discontinuation of his Plavix. Per Dr. Holman's event note, this could be safely discontinued, so this was done. At discharge, white count is 14,700 with 82.7% segs, 9.5% lymphs, and 5.0% monos ; H&H 14.5/43.0 with normal indices and normal red blood cell distribution with ; platelet count 198,000; creatinine 1.00, BUN 20, sodium 137, potassium 4.7, magnesium 2.3; calcium 9.1, albumin 3.7, total protein 6.8; liver function test within normal limits; total bilirubin 1.10; BNP 46; TSH was normal at 1.050 however free T4 was low initially at 0.64 and on repeat remained low at 0.58. We will repeat this and his follow-up appointment in approximately 2 weeks. Urinalysis showed no evidence of infection. For more information regarding Mr. Roca' past medical history, social history, family history, admit labs, admit x-ray and admit exam, please see the admission note dated 05/22/2017. Impression: 1. Bilateral lower extremity lymphangitis and cellulitis refractory to outpatient treatment. Resolved. 2. Hypomagnesemia. Resolved. 3. Bilateral hand and left cramping, likely secondary to #2. Resolved 4. COPD with mild exacerbation based on increased shortness of breath and wheezing. 5. History of GERD with Degroot's Esophagitis. 6. Hypertension. 7. Hyperlipidemia. 8. Low Free T4 but normal TSH. Unknown etiology and significance at this time. 9. See past history. Plan: Liquid albuterol 2 mg 3 times daily, Norvasc 5 mg daily, aspirin 81 mg daily, Lipitor 40 mg at bedtime, vitamin D3 2000 units daily, Klonopin 1 mg at bedtime, Colace 100 mg twice daily as needed, Flonase 2 sprays each nostril twice daily as needed, hydrochlorothiazide 25 mg daily, Chronulac 20 g every 4 hours as needed, Slow-Mag 128 mg twice daily, Reglan 10 mg every 6 hours, Lopressor 12.5 mg twice daily, Singulair 10 mg twice daily, vitamin D3 1000 mg daily, Nitrostat 0.4 mg sublingual every 5 minutes as needed chest pain, Nexium 40 mg twice daily, K-Dur 10 mEq twice daily, vitamin B6 100 mg daily, Osteo Bi- Flex 2 tablets daily, vitamin B12 1000 mcg daily, Combivent Respimat 1 puff 4 times daily as needed, Anoro Ellipta 1 puff daily, DuoNeb twice daily up to 4 times daily, Cleocin 300 mg 3 times daily for 5 days, Ceftin 500 mg twice daily for 5 days, and prednisone 10 mg twice daily. He will be scheduled to follow-up with Natalie Marx, nurse practitioner, in approximately 2 weeks with a repeat TSH and free T4. He can be seen sooner if needed. Specialty Discharge - Follow Up or Referrals Follow up with: Natalie Marx CFNP [Advanced Practice Nurse] - 2 Weeks (with TSH and Free T4) Discharge Plan - Discharge Medications New Cefuroxime Tab [Ceftin] 500 mg PO BID #10 tablet Docusate Sodium Cap [Colace Cap] 100 mg PO BID PRN capsule PRN Reason: Constipation Montelukast Tab [Singulair Tab] 10 mg PO BID #60 tablet Potassium Chloride Cap/Tab [K Dur] 10 meq PO BID #60 tablet Clindamycin Cap [Cleocin Cap] 300 mg PO Q8HR #15 capsule Magnesium Chloride [Slow Mag] 128 mg PO BID #120 tablet Continue hydroCHLOROthiazide [Hydrochlorothiazide] 25 mg PO DAILY Nitroglycerin Sl Tab [Nitrostat] 0.4 mg SL Q5M PRN PRN Reason: Chest Pain Aspirin [Aspirin EC] 81 mg PO DAILY Ipratropium/Albuterol Inhaler [Combivent Respimat Inhaler] 1 puff INH QID PRN PRN Reason: BREATHING Cholecalciferol (Vitamin D3) [Vitamin D3] 1,000 unit PO DAILY Esomeprazole Magnesium [Nexium] 40 mg PO BID predniSONE [Prednisone] 10 mg PO BID amLODIPine [Norvasc] 5 mg PO DAILY Metoprolol Succinate 0.5 tablet PO BID Atorvastatin [Lipitor] 40 mg PO BEDTIME Fluticasone 50 Mcg Nasal Marion [Flonase Nasal Marion] 2 spray BOTH NARES BID PRN PRN Reason: NASAL STUFFINESS Turmeric/Turmeric Ext/Pepr Ext [Turmeric Complex 500 mg Cap] 2 each PO DAILY Cyanocobalamin Tab [Vitamin B12 Tab] 1,000 mcg PO DAILY Pyridoxine HCl (Vitamin B6) [Pyridoxine HCl] 100 mg PO DAILY Albuterol/Ipratropium Neb [Duoneb] 3 ml RESP TX BID Niacin [Vitamin B3] 1,000 units PO DAILY Albuterol Liquid [Proventil Liquid] 2 mg PO TID Umeclidinium Brm/Vilanterol Tr [Anoro Ellipta] 1 puff INH DAILY Metoclopramide Tab [Reglan Tab] 10 mg PO Q6H No Action Clopidogrel [Plavix] 75 mg PO DAILY Magnesium Chloride [Slow Mag] 128 mg PO DAILY Sulfameth/Trimeth 800-160 Tab [Bactrim DS Tab] 2 tablet PO DAILY PRN PRN Reason: Wound Healing Ubidecarenone [Co Q-10] 200 mg PO DAILY Montelukast Tab [Singulair Tab] 10 mg PO DAILY Potassium 2 tablet PO DAILY Gluc/Micky-MSM#1/C/Shabbir/Sanchez/Bor [Osteo Bi-Flex Caplet] 2 each PO DAILY - Follow Up or Referral Follow Up: Natalie Marx CFNP [Advanced Practice Nurse] - 2 Weeks (with TSH and Free T4) - Forms/Instructions Exam - Constitutional Vitals: Period Temp Pulse Resp BP Sys/Granaods Pulse Ox Last 24 Hr 96.8 F-98.5 F 63-96 16-24 129-160/65-98 91-98 DS: Provider Date of admission: 05/30/17 10:51 Primary care physician: Richard Mahoney Attending physician on admission: Rome Zhang MD Discharging clinician: SHANNON Harris
[2017-06-04] MEDS: methylPREDNISolone SOD SUC 40 MG/1 ML VIAL IV SCH (10:53)
[2017-06-04 16:02] VITALS: BP 139/88
== END 2017-06-04 12:45 | disposition home or self-care (01) | DRG 191 ==
LOC: N.5E 10:51
PROVIDERS: ADMIT Internal Medicine Pulmonary Disease; ATTEND Internal Medicine Pulmonary Disease